=== PATIENT | female | born 1960 | race Caucasian/White ===

== ENCOUNTER → 2016-10-25 | Outpatient (CLI) | payer OTHER ==
[~2016-10-25] MED LIST: BYSTOLIC10 MG PO; NORCO 325 MG-51 TAB PO; STOOL SOFTENER100 M1 PO; ZYRTEC5 MG PO
== END ==
LOC: COL.RAD 13:01
DX: M25.551 Pain in right hip (principal); M16.11 Unilateral primary osteoarthritis, right hip
CPT/HCPCS: J3301; Q9967

== ENCOUNTER → 2017-09-20 | Outpatient (CLI) | payer BC | LOC: COL.LAB 15:00 | DX: Z01.812 Encounter for preprocedural laboratory examination (principal); M25.851 Other specified joint disorders, right hip ==

== ENCOUNTER → 2019-01-02 | Outpatient (CLI) | payer BC | LOC: MC.RAD 09:57 | DX: Z12.31 Encounter for screening mammogram for malignant neoplasm of breast (principal); N63.11 Unspecified lump in the right breast, upper outer quadrant ==

== ENCOUNTER → 2019-01-05 | Outpatient (CLI) | payer BC | LOC: MC.RAD 07:55 | DX: N63.11 Unspecified lump in the right breast, upper outer quadrant (principal) ==

== ENCOUNTER → 2019-01-09 | Outpatient (CLI) | payer BC | LOC: MC.RAD 06:54 | DX: N63.10 Unspecified lump in the right breast, unspecified quadrant (principal); N63.11 Unspecified lump in the right breast, upper outer quadrant; Z98.82 Breast implant status ==

== ENCOUNTER → 2019-01-24 | Outpatient (CLI) | payer BC ==
[~2019-01-24] MED LIST changes: +NYQUIL GENERIC PO; +PROAIR HFA0.09 MG/AC IH; +RT ADVAIR 128 DISKUS IH; +TYLENOL 500MG500 MG PO; +ZYRTEC 10MG10 MG PO
== END ==
LOC: COL.RAD 12:51
DX: C50.911 Malignant neoplasm of unspecified site of right female breast (principal)
CPT/HCPCS: A9541

== ENCOUNTER 2019-01-25 06:35 | Day surgery (SDC) | payer BC ==
[2019-01-25] VITALS (7 sets, daily range): BP systolic 124–139; BP diastolic 60–77; PULSE 69–82; TEMP 97.2–97.7
[~2019-01-25] VITALS: Ht 152.4 cm; Wt 87.1 kg
[~2019-01-25 06:35] MED LIST changes: -NYQUIL GENERIC PO; -PROAIR HFA0.09 MG/AC IH; -RT ADVAIR 128 DISKUS IH; -TYLENOL 500MG500 MG PO; -ZYRTEC 10MG10 MG PO
[2019-01-25] MEDS ORDERED: PROAIR HFA0.09 MG/AC IH (08:32)
[2019-01-25] MEDS ORDERED: ZYRTEC 10MG10 MG PO (08:33)
[2019-01-25] MEDS ORDERED: BYSTOLIC10 MG PO (08:34)
[2019-01-25] MEDS ORDERED: RT ADVAIR 128 DISKUS IH ×2 (08:35)
[2019-01-25] MEDS ORDERED: TYLENOL 500MG500 MG PO (08:36)
[2019-01-25] MEDS ORDERED: NYQUIL GENERIC PO (08:37)
[2019-01-25] MEDS ORDERED: NORCO 325 MG-51 TAB PO (12:59)
--- NOTE | 2019-01-25 13:35 | NUR ---
Patient returns to room 7 per cart from PACU and is awake and alert. IV fluids infusing LW and dressing covering the right breast area dry. Temp 98.1 and sats 96% on 2L per nasal cannula. Spouse in room and siderails up x2. Patient wishes to sleep. Lights dimmed and warm blankets on.
--- NOTE | 2019-01-25 13:50 | NUR ---
Patient is resting and offers no complaints of pain. Continues to rest when not disturbed.
--- NOTE | 2019-01-25 14:05 | NUR ---
States that she is beginning to have more discomfort and is asking for pain medication. Denies nausea. Given snack of pudding and water.
--- NOTE | 2019-01-25 14:10 | NUR ---
[place] 5mg one tab for pain at 7/10. Will continue to monitor.
--- NOTE | 2019-01-25 14:20 | NUR ---
States pain is becoming less and not increasing. Oxygen removed.
--- NOTE | 2019-01-25 14:35 | NUR ---
States that the pain pill is helping.
--- NOTE | 2019-01-25 14:57 | NUR ---
Patient assisted up to the bathroom and gait steady. Voids and returns to room. IV discontinued and dresses self.
--- NOTE | 2019-01-25 15:10 | NUR ---
Given dismissal instructions and voices understanding of home cares. Spouse was given script for [place] and filled prior to discharge.
--- NOTE | 2019-01-25 15:15 | NUR ---
Patient dismissed to home per private vehicle driven by spouse with dismissal instructions in hand. Taken to the front door per wheelchair and assisted into vehicle by Karine TORRES.
== END 2019-01-25 15:15 | disposition home or self-care (01) ==
LOC: SDCO 06:35
DX: C50.411 Malignant neoplasm of upper-outer quadrant of right female breast (principal); Z17.0 Estrogen receptor positive status [ER+]; I10 Essential (primary) hypertension; E66.09 Other obesity due to excess calories; Z68.37 Body mass index [BMI] 37.0-37.9, adult; Z90.710 Acquired absence of both cervix and uterus; Z79.899 Other long term (current) drug therapy; Z96.641 Presence of right artificial hip joint; Z88.0 Allergy status to penicillin
CPT/HCPCS: J2250; J2405; J2704; J3010; J7120; Q9968

== ENCOUNTER 2019-01-31 05:31 | Day surgery (SDC) | payer BC ==
[~2019-01-31] VITALS: Ht 152.4 cm; Wt 87.0 kg
[~2019-01-31 05:31] MED LIST changes: +NYQUIL GENERIC PO; +PROAIR HFA0.09 MG/AC IH; +RT ADVAIR 128 DISKUS IH; +TYLENOL 500MG500 MG PO; +ZYRTEC 10MG10 MG PO
[2019-01-31] MEDS ORDERED: RT ADVAIR 128 DISKUS IH (05:53)
[2019-01-31] MEDS ORDERED: NORCO 325 MG-51 TAB PO (05:54)
[2019-01-31 05:56] VITALS: BP 138/71; PULSE 83; TEMP 98.3
[2019-01-31 09:00] VITALS: BP 104/56; PULSE 76; TEMP 98.9
--- NOTE | 2019-01-31 09:00 | NUR ---
The patient arrived back to [facility] from the recovery room at this time. The patient appears alert and oriented and denies any pain or nausea at this time. The patient's post operative vital signs were started at this time. The patient's dressing to her right breast appears clean, dry, and intact. The patient requests to try some grape juice at this time. The patient's family was brought back to be at her bedside. Call light is within reach. The patient denies any further needs at this time. Will continue to monitor the patient.
[2019-01-31 09:15] VITALS: BP 100/60; PULSE 73
--- NOTE | 2019-01-31 09:15 | NUR ---
The patient has finished her juice and requests to try some vanilla pudding and water at this time. The patient's vital signs appear stable at this time. The patient continues to deny any pain or nausea at this time. Family remains at her bedside. Will continue to monitor the patient.
[2019-01-31 09:30] VITALS: BP 114/57; PULSE 80
--- NOTE | 2019-01-31 09:30 | NUR ---
The patient was weaned to room air and appeared to be tolerating it well. The patient voices a desire to ambulate to the bathroom. The patient's IV was INT'd and she was assisted to the bathroom with stand by assist and appeared to tolerate the activity well. The nurse instructed the patient that if she is able to void she can get dressed when she returns to her room and notify the staff when she is ready to review her discharge instructions.
--- NOTE | 2019-01-31 09:40 | NUR ---
Discharge instructions were reviewed with the patient and her daughter at this time. They both verbalized understanding and have no questions for the nurse at this time. The patient's IV to her left wrist was removed and a pressure dressing was applied to the site. The patient is dressed and ready to be escorted out.
--- NOTE | 2019-01-31 09:45 | NUR ---
The patient was escorted out via wheelchair to a private vehicle by JAYLAN Justice. The patient's belongings and discharge paperwork were sent with her. The patient's daughter is present to drive her home.
== END 2019-01-31 09:45 | disposition home or self-care (01) ==
LOC: SDCO 05:31
DX: C50.411 Malignant neoplasm of upper-outer quadrant of right female breast (principal); Z17.0 Estrogen receptor positive status [ER+]; I10 Essential (primary) hypertension; E66.09 Other obesity due to excess calories; Z68.37 Body mass index [BMI] 37.0-37.9, adult; J45.909 Unspecified asthma, uncomplicated; Z90.49 Acquired absence of other specified parts of digestive tract; Z90.710 Acquired absence of both cervix and uterus; Z96.641 Presence of right artificial hip joint; Z88.6 Allergy status to analgesic agent; Z88.1 Allergy status to other antibiotic agents; Z88.0 Allergy status to penicillin; Z79.899 Other long term (current) drug therapy
CPT/HCPCS: J0690; J1100; J1885; J2405; J2704; J3010; J7120

== ENCOUNTER 2019-09-28 16:48 | Emergency (ER) | payer BC ==
[~2019-09-28] VITALS: Ht 152.4 cm; Wt 88.6 kg
[2019-09-28 17:13] VITALS: TEMP 97.7
[2019-09-28 19:42] LABS: BASO % 0.3 % (0.0-2.0); EOS # 0.1 (0.0-0.7); EOS % 0.8 % (0-4.0); GRAN # 7.7 (1.4-6.5); GRAN % 82.9 % (42.2-75.2); HEMOGLOBIN 14.4 g/dl (12.5-16.0); LYMPH % 11.1 % (20.0-51.0); MEAN CELL VOLUME 89 fl (80.0-100.0); MEAN CORPUSCULAR HEMOGLOBIN 30 pg (27.0-31.0); MEAN CORPUSCULAR HGB CONC 34 g/dl (33.0-37.0); MONO # 0.4 (0.1-0.6); MONO % 4.4 % (1.7-9.3); PLATELET COUNT 185 K/mm3 (130-400); RED BLOOD COUNT 4.81 M/mm3 (4.10-5.30); REDCELL DISTRIBUTION WIDTH-CV 12.5 % (11.5-14.5)
[2019-09-28 19:51] LABS: ALBUMIN 4.7 gm/dL (3.5-5.0); BILIRUBIN,TOTAL 0.9 mg/dL (0.0-1.0); C-REACTIVE PROTEIN 1.5 mg/dL (0.0-0.9); CALCIUM 9.7 mg/dL (8.4-10.2); CREATININE, serum 0.63 (0.52-1.25); POTASSIUM 4.5 mmol/L (3.4-5.0); TOTAL PROTEIN 8.3 gm/dL (6.4-8.2)
[2019-09-28 20:00] LABS: COLLECTION METHOD CLEAN CATCH
[2019-09-28 20:33] LABS: MUCOUS Present /lpf; PH 5 (5-8); SQUAMOUS EPITHELIAL 0-2 /hpf; URINE APPEARANCE Hazy; URINE BACTERIA Rare /hpf; URINE BILIRUBIN Negative (NEGATIVE); URINE BLOOD Negative (NEGATIVE); URINE COLOR Yellow; URINE GLUCOSE Negative (NEGATIVE); URINE KETONE Trace (NEGATIVE); URINE LEUKOCYTE ESTERASE 1+ (NEGATIVE); URINE NITRATE Negative (NEGATIVE); URINE PROTEIN(semi-quant) Negative (NEGATIVE); URINE RBC 0-2 /hpf; URINE UROBILINOGEN Negative (NEGATIVE)
[2019-09-28 23:12] VITALS: BP 124/83; PULSE 98
== END 2019-09-28 23:12 | disposition short-term general hospital (02) ==
LOC: COL.ER 16:48
PROVIDERS: Family Medicine
DX: K56.609 Unspecified intestinal obstruction, unspecified as to partial versus complete obstruction (principal); Z79.51 Long term (current) use of inhaled steroids
CPT/HCPCS: J1170; J2405; J3010; J7120; Q9967

== ENCOUNTER → 2020-01-03 | Outpatient (CLI) | payer BC | LOC: MC.RAD 13:42 | DX: C50.411 Malignant neoplasm of upper-outer quadrant of right female breast (principal); I10 Essential (primary) hypertension; Z98.890 Other specified postprocedural states | CPT/HCPCS: G0279 ==

== ENCOUNTER → 2021-01-05 | Outpatient (CLI) | payer BC | LOC: MC.RAD 09:19 | DX: Z12.31 Encounter for screening mammogram for malignant neoplasm of breast (principal); Z90.11 Acquired absence of right breast and nipple; C50.919 Malignant neoplasm of unspecified site of unspecified female breast; Z98.82 Breast implant status; Z98.890 Other specified postprocedural states ==

== ENCOUNTER → 2022-01-06 | Outpatient (CLI) | payer BC | LOC: MC.RAD 14:45 | DX: Z12.31 Encounter for screening mammogram for malignant neoplasm of breast (principal); Z85.3 Personal history of malignant neoplasm of breast ==